=== PATIENT | female | born 1985 | race Caucasian/White ===

== ENCOUNTER 2020-11-23 12:05 | Emergency (ER) | payer OTHER, SELFPAY ==
[~2020-11-23] VITALS: Ht 170.2 cm; Wt 131.5 kg
[2020-11-23 12:05] VITALS: BP_SYST 119
--- NOTE | 2020-11-23 12:15 | NUR ---
Pt presents to ed with compaints of shaking and fever at home. Pt states she has history of RA and has not been able to get her medication. Pt is requesting her labs be drawn to have her medications filled. This morning she felt her body get stiff and decided to come to the ED. Pt states 8/10 body, no distress or sob noted.
--- NOTE | 2020-11-23 12:34 | NUR ---
ER at bedside examining patient.
--- NOTE | 2020-11-23 12:36 | NUR ---
# 24 gauge angiocath placed to right hand. Use of asceptic technique. Opsite placed over site. Blood return noted. Blood for lab drawn from site. Flushed with 10 cc of normal saline. No evidence of infiltration noted. Patient tolerated well.
--- NOTE | 2020-11-23 12:40 | NUR ---
IV fluids infusing per md order.
[2020-11-23] MEDS ORDERED: NACL 0.9% 1,000 ML IV ONE (12:45)
[2020-11-23 13:08] LABS: CALCIUM 8.9 mg/dL (8.4-11.0); CREATININE 0.6 mg/dL (0.55-1.30); POTASSIUM 3.5 mmol/L (3.5-5.1)
[2020-11-23 13:09] LABS: BASOPHILS % (AUTO) 0.5 % (0.0-2.0); EOSINOPHILS % (AUTO) 0.5 % (0.0-4.0); HEMOGLOBIN 10.2 g/dL (12.0-16.0); LYMPHOCYTES # (AUTO) 0.4 K/uL (1.0-5.5); LYMPHOCYTES % (AUTO) 13.7 % (20.5-51.5); MEAN CORPUSCULAR HEMOGLOBIN 25 pg (27-31); MEAN CORPUSCULAR HGB CONC 33 % (32-36); MEAN CORPUSCULAR VOLUME 76 fL (79.0-98.0); MONOCYTES # (AUTO) 0.3 K/uL (0.0-1.0); MONOCYTES % (AUTO) 11.1 % (1.7-9.3); NEUTROPHILS % (AUTO) 74.2 % (40.0-70.0); PLATELET COUNT (AUTO) 142 K/uL (130-430); RED BLOOD CELL COUNT(AUTO) 4.08 MIL/uL (4.2-6.2); RED CELL DISTRIBUTION WIDTH 17.2 % (9.0-15.0); WHITE BLOOD COUNT (AUTO) 2.6 K/uL (4.8-10.8)
[2020-11-23 13:19] LABS: ALBUMIN 2.8 g/dL (3.4-4.8); TOTAL BILIRUBIN 0.9 mg/dL (0.0-1.0)
[2020-11-23 13:34] LABS: INR 2.5 (0.8-1.2); PROTHROMBIN TIME 25.8 SECS (9.5-12.5)
--- NOTE | 2020-11-23 15:25 | NUR ---
CM called to see patient. process worker not available.
[2020-11-23] MEDS ORDERED: FOLIC ACID 5 MG/ML VIAL IV ONE (15:45)
[2020-11-23] MEDS ORDERED: DEXAMETHASONE SOD PHOSPHATE 10 MG/ML VIAL IVP ONE (15:45)
[2020-11-23] MEDS ORDERED: KETOROLAC TROMETHAMINE 30 MG VIAL IVP ONE (15:45)
[2020-11-23] MEDS ORDERED: fentaNYL CITRATE/PF 100 MCG/2 ML AMP IVP ONE (15:45)
--- NOTE | 2020-11-23 15:55 | NUR ---
IV pain medications given.
[2020-11-23 16:04] LABS: BILIRUBIN,URINE 1+ (NEGATIVE); CLARITY/URINE CLOUDY (CLEAR); COLOR,URINE YELLOW (YELLOW); GLUCOSE,URINE NEGATIVE (NEGATIVE); KETONES,URINE NEGATIVE (NEGATIVE); LEUKOCYTE ESTERASE ,URINE 3+ (NEGATIVE); NITRITE, URINE POSITIVE (NEGATIVE); PROTEIN URINE 1+ (NEGATIVE)
--- NOTE | 2020-11-23 16:09 | NUR ---
CM at bedside. Pt and mother given information for transportation assistance.
--- NOTE | 2020-11-23 16:33 | NUR ---
Pt resting in bed. No pain noted.
[2020-11-23 16:37] LABS: BLOOD, URINE TRACE (NEGATIVE)
[2020-11-23] MEDS ORDERED: PRED5TAB PO (16:47)
[2020-11-23] MEDS ORDERED: TOFA10TA PO (16:47)
[2020-11-23] MEDS ORDERED: METH2.5T PO (16:47)
[2020-11-23] MEDS ORDERED: LEUC5TAB PO (16:47)
[2020-11-23] MEDS ORDERED: FERR220S6 PO (16:47)
[2020-11-23] MEDS ORDERED: IBUP-1971 PO (16:47)
[2020-11-23] MEDS ORDERED: FOLI-43 PO (16:47)
[2020-11-23] MEDS ORDERED: CEPH250C PO (16:49)
[2020-11-23] MEDS ORDERED: cefTRIAXone 1 GM in D5W 50 ML IV ONE (17:00)
[2020-11-23 17:03] LABS: BACTERIA,URINE MANY /HPF (None Seen); WBC,URINE >100 /HPF (0-3)
[2020-11-23 17:04] LABS: MUCUS,URINE 2+ /LPF (None Seen); URINE AMORPHOUS URATE 2+ /HPF (None Seen)
--- NOTE | 2020-11-23 18:43 | NUR ---
Pt given food tray. mother at bedside.
--- NOTE | 2020-11-23 18:43 | NUR ---
Patient given written and verbal discharge instructions and verbalizes understanding. ER MD discussed with patient the results and treatment provided. Patient in stable condition. ID arm band removed. IV catheter removed intact and dressing applied, no active bleeding. Rx of keflex, ferrous sulfate, folic acid, motrin, leucovorin, methotrexate, prednisone, xeljanz given. Patient educated on pain management and to follow up with PMD. Pain Scale 0. Opportunity for questions provided and answered. Medication side effect fact sheet provided.
--- NOTE | 2020-11-23 18:44 | NUR ---
Ambulance called for transportation back home.
[2020-11-23 19:09] VITALS: BP_SYST 127
== END 2020-11-23 18:44 | disposition home or self-care (01) ==
LOC: SED 12:05
DX: G89.29 Other chronic pain (principal); R50.9 Fever, unspecified; I49.9 Cardiac arrhythmia, unspecified
CPT/HCPCS: 36415; 71045; 80053; 81000; 83605; 84702; 85025; 85610; 85730; 87040; 87086; 93005; 96361; 96374; 96375; 99285; J1100; J1885; J3010; J3490; J7030